=== PATIENT | male | born 1960 | race Two or more races ===

== ENCOUNTER 2020-10-21 13:05 | Outpatient (CLI) | payer OTHER ==
[~2020-10-21 13:05] MED LIST: ANTIVERT25 M1 PO; AVALIDE 300-251 TAB; CELEBREX100 MG PO; NORVASC5 MG; SKELAXIN800 MG PO
== END 2020-10-21 13:20 ==
LOC: MRI 13:05
DX: M17.11 Unilateral primary osteoarthritis, right knee (principal); S83.241A Other tear of medial meniscus, current injury, right knee, initial encounter; M25.461 Effusion, right knee
CPT/HCPCS: 73221; 73721

== ENCOUNTER 2021-12-07 09:43 | Outpatient (CLI) | payer OTHER | END 2021-12-07 09:45 | disposition home or self-care (01) | LOC: MRI 09:43 | PROVIDERS: ATTEND Orthopaedic Surgery | DX: M25.511 Pain in right shoulder (principal) | CPT/HCPCS: 73218 ==

== ENCOUNTER 2022-08-15 13:37 | Outpatient (CLI) | payer OTHER | END 2022-08-15 13:40 | disposition home or self-care (01) | LOC: MRI 13:37 | DX: M25.562 Pain in left knee (principal); M25.561 Pain in right knee; R07.9 Chest pain, unspecified | CPT/HCPCS: 73721 ==

== ENCOUNTER → 2023-07-20 | Outpatient (CLI) | payer OTHER | END | disposition home or self-care (01) | LOC: RAD 11:10 | PROVIDERS: ATTEND Physical Medicine & Rehabilitation | DX: M17.9 Osteoarthritis of knee, unspecified (principal) ==

== ENCOUNTER 2024-05-02 09:29 | Outpatient (CLI) | payer OTHER ==
[~2024-05-02 09:29] MED LIST changes: +DICLOFENAC POTA50 MG PO
== END 2024-05-02 09:32 | disposition home or self-care (01) ==
LOC: SONOGRAMA 09:29
PROVIDERS: ATTEND Internal Medicine Rheumatology
DX: M75.81 Other shoulder lesions, right shoulder (principal); M75.82 Other shoulder lesions, left shoulder; M19.011 Primary osteoarthritis, right shoulder; M19.012 Primary osteoarthritis, left shoulder

== ENCOUNTER 2024-08-22 11:16 | Emergency (ER) | payer OTHER ==
[~2024-08-22] VITALS: Ht 193 cm; Wt 110.2 kg
[2024-08-22] MEDS ORDERED: TAMS0.4C PO (11:32)
[2024-08-22 12:57] LABS: HEMATOCRIT 41.6 % (39.0-48.0); HEMOGLOBIN 14.7 g/dL (13-16.00); MEAN CELL VOLUME 88.3 fL (80.0-100.00); MEAN CORPUSCULAR HEMOGLOBIN 31.3 pg (27.00-32.0); MEAN CORPUSCULAR HGB CONC 35.4 g/dl (32.0-36.0); PLATELET COUNT 171 K/uL (150-450); RED BLOOD COUNT 4.71 M/uL (4.00-6.00); RED CELL DISTRIBUTION WIDTH 13.7 % (11.5-14.5)
== END 2024-08-22 14:26 | disposition home or self-care (01) ==
LOC: ER 11:17
PROVIDERS: General Practice
DX: B34.9 Viral infection, unspecified (principal); I10 Essential (primary) hypertension; Z20.822 Contact with and (suspected) exposure to COVID-19

== ENCOUNTER 2024-10-31 11:20 | Outpatient (CLI) | payer OTHER ==
[~2024-10-31 11:20] MED LIST changes: +TAMS0.4C PO
== END 2024-10-31 11:40 | disposition home or self-care (01) ==
LOC: MRI 11:20
PROVIDERS: ATTEND Physical Medicine & Rehabilitation Pediatric Rehabilitation Medicine
DX: M75.111 Incomplete rotator cuff tear or rupture of right shoulder, not specified as traumatic (principal); M15.0 Primary generalized (osteo)arthritis
CPT/HCPCS: 73218